=== PATIENT | male | born 1940 | race Caucasian/White ===

== ENCOUNTER 2019-10-02 00:13 | Emergency (ER) | payer MEDICARE, BC ==
[~2019-10-02] VITALS: Ht 188 cm; Wt 105.5 kg
[2019-10-02 02:00] LABS: BASOPHILS % (AUTO) 0.4 % (0-1); HEMOGLOBIN 9.3 g/dl (14.0-17.9); LYMPHOCYTES # (AUTO) 0.6 X10'3 (1.1-4.8); MONOCYTES # (AUTO) 0.9 X10'3 (0-0.9)
[2019-10-02 02:02] LABS: EOSINOPHILS % (AUTO) 0.6 % (0-6); HEMATOCRIT 28.6 % (42.0-52.0); LYMPHOCYTES % (AUTO) 8.2 % (21-51); MEAN CORPUSCULAR HGB CONC 32.4 g/dL (33.0-36.5); MEAN CORPUSCULAR VOLUME 61.7 FL (78-98); MEAN PLATELET VOLUME 9.5 FL (7.4-10.4); MONOCYTES % (AUTO) 11.6 % (2-12); NEUTROPHILS % (AUTO) 79.2 % (42-75); PARTIAL THROMBOPLASTIN TIME 31 SECONDS (22-32); PLATELET COUNT 136 X10'3 (140-440); RED BLOOD COUNT 4.63 X10'6 (4.70-6.10); RED CELL DISTRIBUTION WIDTH 15.4 % (11.5-14.5); WHITE BLOOD COUNT 7.5 X10'3 (4.5-11.0)
[2019-10-02 02:03] LABS: CLARITY,URINE CLEAR (Clear); COLOR,URINE YELLOW (Yellow); GLUCOSE, URINE NEGATIVE (Neg); KETONES,URINE NEGATIVE (Neg); LEUKOCYTE ESTERASE ,URINE NEGATIVE (Neg); NITRITES, URINE NEGATIVE (Neg); OCCULT BLOOD,URINE TRACE-INTACT (Neg); PROTEIN,URINE TRACE mg/dl (Neg); UROBILINOGEN,URINE 0.2 E.U/dL (0.2-1.0)
[2019-10-02 02:04] LABS: ALANINE AMINOTRANSFERASE 24 U/L (12-78); ALBUMIN 3.5 G/DL (3.4-5.0); ALBUMIN/GLOBULIN RATIO 1.1 (1.1-1.5); ALKALINE PHOSPHATASE 52 IU/L (46-116); ANION GAP 7 (8-16); ASPARTATE AMINO TRANSFERASE 19 U/L (10-37); BILIRUBIN,TOTAL 0.6 MG/DL (0.1-1.0); BLOOD UREA NITROGEN 21 MG/DL (7-18); BUN/CREATININE RATIO 15.3 (5.4-32.0); CALCIUM 8.9 MG/DL (8.5-10.1); CHLORIDE 103 MMOL/L (99-107); CREATININE 1.37 MG/DL (0.60-1.10); GLUCOSE 157 MG/DL (70-104); POTASSIUM 3.4 MMOL/L (3.5-5.1); SODIUM 137 MMOL/L (135-145); TOTAL CARBON DIOXIDE 26.9 MMOL/L (24-32); TOTAL PROTEIN 6.7 G/DL (6.4-8.2); eGFR 50 ML/MIN
[2019-10-02 02:06] LABS: UA COLLECTION TYPE VOIDED
[2019-10-02 02:30] LABS: BACTERIA,URINE NONE SEEN /HPF (Neg); RBC,URINE NONE SEEN /HPF (0-2); SQUAMOUS EPITHELIAL CELL,UR NONE SEEN /LPF (FEW); WBC,URINE NONE SEEN /HPF (0-4)
[2019-10-02] MEDS ORDERED: acetaminophen 325mg tablet PO STA (02:44)
--- NOTE | 2019-10-02 02:44 | NUR ---
Dr. Mccann was called and SBAR to him and I was granted to do a rapid covid 19 on the patient.
[2019-10-02] MEDS ORDERED: AMLO10TA13 PO (02:59)
[2019-10-02] MEDS ORDERED: APIX5TAB3 PO ×2 (02:59→03:05)
[2019-10-02] MEDS ORDERED: VENL37.589 PO (02:59)
[2019-10-02] MEDS ORDERED: EZET10TA48 PO (02:59)
[2019-10-02] MEDS ORDERED: METF500T PO (02:59)
[2019-10-02] MEDS ORDERED: CARV6.253 PO (02:59)
[2019-10-02] MEDS ORDERED: ASPI-611 PO (03:00)
[2019-10-02] MEDS ORDERED: GLIM2TAB6 PO (03:00)
[2019-10-02 03:02] LABS: OCCULT BLOOD STOOL NEGATIVE (Neg)
[2019-10-02] MEDS ORDERED: TRIA1TAB3 PO (03:02)
[2019-10-02] MEDS ORDERED: LINA5TAB4 PO (03:02)
[2019-10-02] MEDS ORDERED: VENL-191 PO (03:02)
[2019-10-02] MEDS ORDERED: CALC0.2535 PO (03:02)
[2019-10-02] MEDS ORDERED: TELM80TA9 PO (03:04)
[2019-10-02] MEDS ORDERED: FENO145T25 PO (03:04)
[2019-10-02] MEDS ORDERED: ATOR-2 PO (03:04)
[2019-10-02] MEDS ORDERED: POTA20PA40 PO (03:04)
[2019-10-02] MEDS ORDERED: CEPH500C5 PO ×2 (03:33→03:34)
[2019-10-02 03:34] LABS: PLATELET ESTIMATE DECREASED
[2019-10-02 03:35] LABS: ANISOCYTOSIS FEW; ELLIPTOCYTES 1+; MICROCYTOSIS 2+; POIKILOCYTOSIS 1+; TEAR DROP CELLS FEW
[2019-10-02] MEDS ORDERED: normal saline 1000ML IV soln IVB ONE (03:35)
[2019-10-02] MEDS ORDERED: CefTRIAXone 2gm/D5W 50ml 50 ML IV ONE (03:35)
[2019-10-02 03:36] LABS: HYPOCHROMASIA 1+
[2019-10-02 04:12] VITALS: BP 126/74
== END 2019-10-02 04:14 | disposition home or self-care (01) ==
LOC: ER 00:42
DX: R50.9 Fever, unspecified (principal); R32 Unspecified urinary incontinence; Z20.828 Contact with and (suspected) exposure to other viral communicable diseases; R53.1 Weakness; I25.10 Atherosclerotic heart disease of native coronary artery without angina pectoris; I10 Essential (primary) hypertension; E11.9 Type 2 diabetes mellitus without complications; Z95.1 Presence of aortocoronary bypass graft; Z79.82 Long term (current) use of aspirin; Z79.01 Long term (current) use of anticoagulants; Z79.899 Other long term (current) drug therapy
CPT/HCPCS: 36415; 71045; 80053; 81001; 82272; 83605; 84145; 85025; 85610; 85730; 87040; 87635; 96374; 99284; J0696; J7030; 85027

== ENCOUNTER 2019-10-04 23:55 | Emergency (ER) | payer MEDICARE, BC ==
[~2019-10-04] VITALS: Ht 188 cm; Wt 105.0 kg
[~2019-10-04 23:55] MED LIST: AMLO10TA13 PO; APIX5TAB3 PO; ASPI-611 PO; ATOR-2 PO; CALC0.2535 PO; CARV6.253 PO; CEPH500C5 PO; EZET10TA48 PO; FENO145T25 PO; GLIM2TAB6 PO; LINA5TAB4 PO; METF500T PO; POTA20PA40 PO; TELM80TA9 PO; TRIA1TAB3 PO; VENL37.589 PO
[2019-10-05] MEDS ORDERED: acetaminophen 325mg tablet PO ONE (00:20)
[2019-10-05] MEDS ORDERED: acetaminophen 325mg tablet PO STA (01:05)
[2019-10-05] MEDS ORDERED: normal saline 1000ML IV soln IV ONE (01:05)
[2019-10-05 01:37] LABS: CLARITY,URINE CLEAR (Clear); COLOR,URINE YELLOW (Yellow); GLUCOSE, URINE NEGATIVE (Neg); KETONES,URINE NEGATIVE (Neg); LEUKOCYTE ESTERASE ,URINE NEGATIVE (Neg); NITRITES, URINE NEGATIVE (Neg); OCCULT BLOOD,URINE NEGATIVE (Neg); PROTEIN,URINE NEGATIVE (Neg); UROBILINOGEN,URINE 0.2 E.U/dL (0.2-1.0)
[2019-10-05 01:43] LABS: UA COLLECTION TYPE CLN CATCH MIDSTREAM
[2019-10-05 01:50] LABS: BASOPHILS % (AUTO) 0.5 % (0-1); EOSINOPHILS # (AUTO) 0.1 X10'3 (0-0.9); HEMATOCRIT 28.9 % (42.0-52.0); HEMOGLOBIN 9.3 g/dl (14.0-17.9); LYMPHOCYTES # (AUTO) 0.7 X10'3 (1.1-4.8); LYMPHOCYTES % (AUTO) 10.8 % (21-51); MEAN CORPUSCULAR HEMOGLOBIN 19.8 PG (27.0-31.0); MEAN CORPUSCULAR HGB CONC 32.1 g/dL (33.0-36.5); MEAN CORPUSCULAR VOLUME 61.5 FL (78-98); MEAN PLATELET VOLUME 9.3 FL (7.4-10.4); MONOCYTES # (AUTO) 0.9 X10'3 (0-0.9); MONOCYTES % (AUTO) 13.6 % (2-12); NEUTROPHILS # (AUTO) 4.9 X10'3 (1.8-7.7); NEUTROPHILS % (AUTO) 74.1 % (42-75); PLATELET COUNT 148 X10'3 (140-440); RED CELL DISTRIBUTION WIDTH 15.2 % (11.5-14.5); WHITE BLOOD COUNT 6.6 X10'3 (4.5-11.0)
[2019-10-05 01:55] LABS: PARTIAL THROMBOPLASTIN TIME 33 SECONDS (22-32)
[2019-10-05 01:58] LABS: ALANINE AMINOTRANSFERASE 40 U/L (12-78); ALBUMIN 3.2 G/DL (3.4-5.0); ALKALINE PHOSPHATASE 71 IU/L (46-116); ANION GAP 7 (8-16); ASPARTATE AMINO TRANSFERASE 38 U/L (10-37); BILIRUBIN,TOTAL 0.4 MG/DL (0.1-1.0); BLOOD UREA NITROGEN 23 MG/DL (7-18); BUN/CREATININE RATIO 14.8 (5.4-32.0); CALCIUM 9.6 MG/DL (8.5-10.1); CHLORIDE 101 MMOL/L (99-107); CREATININE 1.55 MG/DL (0.60-1.10); GLUCOSE 129 MG/DL (70-104); MAGNESIUM 1.7 MG/DL (1.5-2.4); POTASSIUM 4.3 MMOL/L (3.5-5.1); SODIUM 134 MMOL/L (135-145); TOTAL CARBON DIOXIDE 26.5 MMOL/L (24-32); TOTAL PROTEIN 6.4 G/DL (6.4-8.2); eGFR 44 ML/MIN
[2019-10-05] MEDS ORDERED: levoFLOXACIN 250mg tablet PO ONE (03:15)
[2019-10-05] MEDS ORDERED: LEVO500T89 PO (03:24)
[2019-10-05 03:26] VITALS: BP 144/97
== END 2019-10-05 03:28 | disposition home or self-care (01) ==
LOC: ER 23:55
DX: J18.9 Pneumonia, unspecified organism (principal); Z20.828 Contact with and (suspected) exposure to other viral communicable diseases; M54.2 Cervicalgia; R51 Headache; I25.10 Atherosclerotic heart disease of native coronary artery without angina pectoris; I10 Essential (primary) hypertension; E11.9 Type 2 diabetes mellitus without complications; Z95.1 Presence of aortocoronary bypass graft; Z79.82 Long term (current) use of aspirin; Z79.01 Long term (current) use of anticoagulants; Z79.899 Other long term (current) drug therapy
CPT/HCPCS: 36415; 71045; 80053; 81003; 83605; 83735; 84145; 85025; 85610; 85730; 87040; 87502; 87503; 93005; 99285; J7030

== ENCOUNTER 2021-01-09 16:42 | Emergency (ER) | payer MEDICARE, BC ==
[~2021-01-09] VITALS: Ht 188 cm; Wt 111.4 kg
[~2021-01-09 16:42] MED LIST changes: +CEPH-585 PO; -CEPH500C5 PO
[2021-01-09] MEDS ORDERED: CASIRIVIMAB/IMDEVIMAB inject. 10 ML in normal saline 100ml IV soln 100 ML IV ONE (19:05)
[2021-01-09 21:55] VITALS: BP 112/67
== END 2021-01-09 21:57 | disposition home or self-care (01) ==
LOC: ER 16:43
DX: U07.1 COVID-19 (principal); D56.9 Thalassemia, unspecified; I25.10 Atherosclerotic heart disease of native coronary artery without angina pectoris; I10 Essential (primary) hypertension; E11.9 Type 2 diabetes mellitus without complications; Z85.9 Personal history of malignant neoplasm, unspecified; Z95.5 Presence of coronary angioplasty implant and graft; Z79.82 Long term (current) use of aspirin; Z79.899 Other long term (current) drug therapy
CPT/HCPCS: 99285; M0243; Q0244